=== PATIENT | female | born 1945 | race Caucasian/White ===

== ENCOUNTER 2019-02-17 14:04 | Inpatient (IN) | payer MEDICARE, BC ==
[~2019-02-17] VITALS: Ht 157.5 cm; Wt 71.3 kg
[~2019-02-17 14:04] MED LIST: ALEN10; ALEN70 PO; AMBIEN CR; ATEN25 PO; CALC1.25T PO; CALGLU500; CEFP500; CHOL10002 PO; ERGO400 PO; ERGO50000 PO; HYDACE5; HYDACE5 PO; HYDACE7.5; HYDCHL25 PO; HYDGUAL120 PO; HYDSUL200; HYDSUL200 PO; IBUP800 PO; LEFL20; LEFL20 PO; LEVFLO500 PO; MELO7.5; MULVIT; NITR100CA; NORT25 PO; NORT50; OSCAL; OXYACE7.5T PO; OXYC5; Percocet 5-3251 EACH PO; REMICADE; RITUXAN IV; Thera-M1 EACH PO; ZOLP10 PO; ZOLP12.5 PO; [UNRECOGNIZED DRUG - OTHER]
[2019-02-17 14:53] LABS: BASOPHILS ABSOLUTE AUTO 0.04 K/mm3 (0.00-0.23); BASOPHILS PERCENT AUTO 0 % (0-2); EOSINOPHILS ABSOLUTE AUTO 0.23 K/mm3 (0.00-0.68); EOSINOPHILS PERCENT AUTO 1 % (0-6); Hematocrit 46.1 % (33.0-51.0); IMMATURE GRAN ABSOLUTE AUTO 0.24 K/mm3 (0.00-0.10); IMMATURE GRAN PERCENT AUTO 1 % (0-1); LYMPHOCYTES PERCENT AUTO 13 % (21-46); MONOCYTES ABSOLUTE AUTO 0.81 K/mm3 (0.16-1.47); MONOCYTES PERCENT AUTO 4 % (4-13); Mean Corpuscular HGB 27.8 pg (26.0-34.0); Mean Corpuscular HGB Conc 30.4 g/dL (31.5-36.5); Mean Corpuscular Volume 92 fL (80-100); NEUTROPHILS ABSOLUTE AUTO 15.06 K/mm3 (1.96-9.15); NEUTROPHILS PERCENT AUTO 80 % (41-73); Platelet Count 664 K/mm3 (150-400); RDW Coefficient Variation 15.2 % (11.7-14.2); RDW Standard Deviation 50.7 fL (35.1-46.3); Red Blood Cell Count 5.03 M/mm3 (3.80-5.20); White Blood Cell Count 18.78 K/mm3 (4.00-11.30)
[2019-02-17 15:11] LABS: Albumin, Blood 3.3 g/dL (3.4-5.0); Albumin/Globulin Ratio 0.8 (0.8-1.8); Bilirubin, Total 0.4 mg/dL (0.1-1.0); Bun/Creatinine Ratio 15.7 (12.0-20.0); Calcium, Blood 9.4 mg/dL (8.5-10.1); Creatinine, Blood 1.15 mg/dL (0.40-1.00); Globulin, Blood 4.3 g/dL (2.2-4.0); Potassium, Blood 3.7 mmol/L (3.5-5.5); Total Protein, Blood 7.6 g/dL (6.4-8.2)
[2019-02-17] MEDS ORDERED: ATEN25 PO (16:06)
[2019-02-17] MEDS ORDERED: ZOLP12.5 PO (16:08)
[2019-02-17] MEDS ORDERED: Norco 5-325 Ta1 EACH PO (16:10)
[2019-02-17] MEDS ORDERED: ZOLP10 PO (16:27)
[2019-02-17] MEDS ORDERED: CELE200 PO (16:27)
[2019-02-17] MEDS ORDERED: Zanaflex4 MG PO (16:28)
[2019-02-17] MEDS ORDERED: PRAV20 PO (16:29)
[2019-02-17] MEDS ORDERED: CALCIUM 500 +1 EAC3 PO (16:31)
[2019-02-17 17:06] LABS: Magnesium, Blood 1.9 mg/dL (1.6-2.4); Troponin I <0.015 ng/mL (0.000-0.040)
[2019-02-18 03:03] LABS: Source, Urine Voided
[2019-02-18 03:05] LABS: Bilirubin, Urine Neg (Neg); Blood, Urine Neg (Neg); Glucose Qualitative, Urine Neg (Neg); Ketones, Urine Neg (Neg); Leukocyte Esterase, Urine 3+ (Neg); Nitrite, Urine Neg (Neg); Protein, Urine 1+ (Neg); Urobilinogen, Urine NORM (Normal); pH, Urine 6.5 (5.0-8.0)
[2019-02-18 03:15] LABS: Appearance, Urine Clear (Clear); Bacteria Few /hpf; Color, Urine Yellow (P-Yellow); Hyaline Casts TNTC /lpf (0-2); Red Blood Cells, Urine Not Seen /hpf (0-2); Squamous Epithelial Cells Few /hpf (Few)
--- NOTE | 2019-02-18 03:54 | NUR ---
SHIFT SUMMARY PT HAD MOSTLY UNEVENTFUL NIGHT. AWAKE THROUGH MUCH OF IT, HAVING DIFFICULTLY SLEEPING WITH IV AND TELE MONITOR AND IN HOSPITAL BED. PT DID HAVE HER BASELINE CHRONIC PAIN FROM HER RA. MOSTLY REPORTED IN HER SHOULDERS AND BUE'S. MEDICATED WITH BEDTIME DOSE OF XANAFLEX AND 1 TAB NORCO 3/325. NO ADDITIONAL PAIN REPORTED OUTSIDE OF HER BASELINE PAIN. PT DENIED ANY DIZZINESS OR LIGHT HEADEDNESS. AMBULATED WITH SBA TO RESTROOM. TELEMETRY ON AND READING SR W/ BBB IN THE 'S. ONE SET OF ORTHOSTATIC VITALS DONE WHEN PT FIRST ARRIVED TO ROOM. LYING DOWN 140/103, SITTING 130/102, AND STANDING 111/81. LACTIC ACID TRENDING DOWN BUT REMAINED > 2.0, DROPPING FROM 2.9 TO 2.3. NOTIFIED MESERET WHITEHEAD WHO ORDERED AN ADDITIONAL 1 L BOLUS AT 500 ML/HR AND TO RECHECK LACTIC ACID IN AM. URINE CULTURE COLLECTED AND SENT TO LAB. PT RESTING IN BED. WILL CONTINUE TO MONITOR.
[2019-02-18 04:49] LABS: BASOPHILS ABSOLUTE AUTO 0.05 K/mm3 (0.00-0.23); BASOPHILS PERCENT AUTO 0 % (0-2); EOSINOPHILS ABSOLUTE AUTO 0.39 K/mm3 (0.00-0.68); EOSINOPHILS PERCENT AUTO 3 % (0-6); Hematocrit 36.1 % (33.0-51.0); IMMATURE GRAN ABSOLUTE AUTO 0.11 K/mm3 (0.00-0.10); IMMATURE GRAN PERCENT AUTO 1 % (0-1); LYMPHOCYTES ABSOLUTE AUTO 1.63 K/mm3 (0.84-5.20); LYMPHOCYTES PERCENT AUTO 13 % (21-46); MONOCYTES ABSOLUTE AUTO 0.64 K/mm3 (0.16-1.47); MONOCYTES PERCENT AUTO 5 % (4-13); Mean Corpuscular HGB 27.8 pg (26.0-34.0); Mean Corpuscular HGB Conc 30.5 g/dL (31.5-36.5); Mean Corpuscular Volume 91 fL (80-100); Mean Platelet Volume 9.9 fL (9.1-12.4); NEUTROPHILS ABSOLUTE AUTO 9.96 K/mm3 (1.96-9.15); NEUTROPHILS PERCENT AUTO 78 % (41-73); Platelet Count 444 K/mm3 (150-400); RDW Coefficient Variation 15.4 % (11.7-14.2); RDW Standard Deviation 51.2 fL (35.1-46.3); Red Blood Cell Count 3.96 M/mm3 (3.80-5.20); White Blood Cell Count 12.78 K/mm3 (4.00-11.30)
[2019-02-18 05:35] LABS: Alanine Aminotransfer (ALT/SGP 23 U/L (12-78); Albumin, Blood 2.5 g/dL (3.4-5.0); Alk Phos 77 U/L (50-136); Anion Gap 9 mmol/L (6-16); Aspartate Aminotrans (AST/SGOT 12 U/L (12-37); Bilirubin, Total 0.3 mg/dL (0.1-1.0); Blood Urea Nitrogen 23 mg/dL (8-24); Bun/Creatinine Ratio 24.3 (12.0-20.0); CHOL/HDL RATIO 3.7; CO2, Blood 23 mmol/L (21-32); Chloride, Blood 111 mmol/L (98-108); Cholesterol 154 mg/dL (50-200); Creatinine, Blood 0.95 mg/dL (0.40-1.00); Glomerular Filtration Rate >60 (60-); Glucose, Blood 89 mg/dL (70-99); HDL Cholesterol 42 mg/dL (>39); LDL/HDL RATIO 1.7; Low Density Lipoprotein Chol 72 mg/dL (0-110); Potassium, Blood 3.9 mmol/L (3.5-5.5); Sodium, Blood 143 mmol/L (136-145); Triglycerides 201 mg/dL (30-160); Very Low Density Lipoprot Chol 40 mg/dL (6-32)
[2019-02-18 05:47] LABS: Percent Saturation 8.8 % (15.0-50.0)
[2019-02-18 05:55] LABS: Albumin/Globulin Ratio 0.7 (0.8-1.8); Globulin, Blood 3.4 g/dL (2.2-4.0); Total Protein, Blood 5.9 g/dL (6.4-8.2)
--- NOTE | 2019-02-18 13:32 | NUR ---
PT DISCHARGED VIA W/C POV WITH SPOUSE AND IN NO ACUTE DISTRESS; VERBALIZED UNDERSTANDING OF DISCHARGE INSTRUCTIONS AND IMPORTANCE OF FOLLOWING UP WITH PCP. IV DISCONTINUED INTACT; ALL BELONGINGS AND VALUABLES SENT WITH PATIENT AT TIME OF DISCHARGE.
--- NOTE | 2019-02-18 16:57 | NUR ---
RECEIVED A PHONE REPORT FROM THE LAB ABOUT GM POS COCCI IN CLUSTERS IN A BLOOD CULT SAMPLE FROM 1804 YESTERDAY. PATIENT HAS BEEN DISCHARGED EARLIER TODAY. I NOTIFIED OF POS BLD. CULT. SHE WILL F/U WITH TOMORROW'S REPORT.
== END 2019-02-18 13:37 | disposition home or self-care (01) | DRG 312 ==
LOC: ER 14:04 → MEDS 19:33 → ENPENDDIS 02-18 12:46 → MEDS 02-18 13:37
PROVIDERS: Emergency Medicine; Physician Assistant; ADMIT Internal Medicine
DX: R55 Syncope and collapse (principal); N17.9 Acute kidney failure, unspecified; I10 Essential (primary) hypertension; M06.9 Rheumatoid arthritis, unspecified; E78.5 Hyperlipidemia, unspecified; I95.1 Orthostatic hypotension; I65.23 Occlusion and stenosis of bilateral carotid arteries
CPT/HCPCS: 36415; 70450; 71046; 73630; 80053; 80061; 81001; 82533; 82607; 82728; 82746; 83540; 83550; 83605; 83735; 84443; 84484; 85025; 87040; 87086; 93005; 93010; 93306; 93880; 99285-25; A9270-GY; J7030

== ENCOUNTER 2019-11-18 06:44 | Emergency (ER) | payer MEDICARE, BC ==
[~2019-11-18] VITALS: Ht 157.5 cm; Wt 72.6 kg
[~2019-11-18 06:44] MED LIST changes: +CALCIUM 500 +1 EAC3 PO; +CELE200 PO; +Norco 5-325 Ta1 EACH PO; +PRAV20 PO; +Zanaflex4 MG PO
[2019-11-18 07:59] LABS: BASOPHILS ABSOLUTE AUTO 0.06 K/mm3 (0.00-0.23); BASOPHILS PERCENT AUTO 1 % (0-2); EOSINOPHILS ABSOLUTE AUTO 0.12 K/mm3 (0.00-0.68); EOSINOPHILS PERCENT AUTO 2 % (0-6); Hematocrit 44.5 % (33.0-51.0); Hemoglobin 13.7 g/dL (11.5-16.0); IMMATURE GRAN ABSOLUTE AUTO 0.01 K/mm3 (0.00-0.10); IMMATURE GRAN PERCENT AUTO 0 % (0-1); LYMPHOCYTES ABSOLUTE AUTO 1.41 K/mm3 (0.84-5.20); LYMPHOCYTES PERCENT AUTO 19 % (21-46); MONOCYTES ABSOLUTE AUTO 0.91 K/mm3 (0.16-1.47); MONOCYTES PERCENT AUTO 12 % (4-13); Mean Corpuscular HGB 27.6 pg (26.0-34.0); Mean Corpuscular HGB Conc 30.8 g/dL (31.5-36.5); Mean Corpuscular Volume 90 fL (80-100); NEUTROPHILS ABSOLUTE AUTO 4.87 K/mm3 (1.96-9.15); NEUTROPHILS PERCENT AUTO 66 % (41-73); Platelet Count 280 K/mm3 (150-400); RDW Coefficient Variation 14.5 % (11.7-14.2); RDW Standard Deviation 47.7 fL (35.1-46.3); Red Blood Cell Count 4.96 M/mm3 (3.80-5.20); White Blood Cell Count 7.38 K/mm3 (4.00-11.30)
[2019-11-18 08:15] LABS: Alanine Aminotransfer (ALT/SGP 73 U/L (12-78); Albumin, Blood 3.8 g/dL (3.4-5.0); Albumin/Globulin Ratio 1.1 (0.8-1.8); Alk Phos 128 U/L (50-136); Anion Gap 6 mmol/L (6-16); Aspartate Aminotrans (AST/SGOT 51 U/L (12-37); Bilirubin, Total 0.8 mg/dL (0.1-1.0); Blood Urea Nitrogen 11 mg/dL (8-24); Bun/Creatinine Ratio 19.1 (12.0-20.0); CO2, Blood 26 mmol/L (21-32); Chloride, Blood 113 mmol/L (98-108); Creatinine, Blood 0.58 mg/dL (0.40-1.00); Globulin, Blood 3.5 g/dL (2.2-4.0); Glomerular Filtration Rate >60 (60-); Glucose, Blood 95 mg/dL (70-99); Potassium, Blood 3.5 mmol/L (3.5-5.5); Sodium, Blood 145 mmol/L (136-145); Total Protein, Blood 7.3 g/dL (6.4-8.2); Troponin I 0.018 ng/mL (0.000-0.040)
[2019-11-18] MEDS ORDERED: AMLODIPINE BESYL5 MG PO (08:25)
[2019-11-18] MEDS ORDERED: NEURONTIN300 MG PO (08:26)
[2019-11-18] MEDS ORDERED: Cymbalta30 MG (08:26)
[2019-11-18] MEDS ORDERED: Lasix20 MG PO (09:54)
[2019-11-18] MEDS ORDERED: K-Dur10 MEQ PO (09:54)
== END 2019-11-18 10:20 | disposition home or self-care (01) ==
LOC: ER 06:44
PROVIDERS: Emergency Medicine
DX: J81.1 Chronic pulmonary edema (principal); R06.01 Orthopnea; Z88.2 Allergy status to sulfonamides; Z79.899 Other long term (current) drug therapy
CPT/HCPCS: 36415; 71046; 80053; 83880; 84484; 85025; 93005; 93010; 94640; 96374; 99284-25; J1940

== ENCOUNTER 2019-11-19 11:20 | Inpatient (IN) | payer MEDICARE, BC ==
[~2019-11-19] VITALS: Ht 160 cm; Wt 73.0 kg
[~2019-11-19 11:20] MED LIST changes: +AMLODIPINE BESYL5 MG PO; +Cymbalta30 MG; +K-Dur10 MEQ PO; +Lasix20 MG PO; +NEURONTIN300 MG PO
[2019-11-19 12:05] LABS: BASOPHILS ABSOLUTE AUTO 0.06 K/mm3 (0.00-0.23); BASOPHILS PERCENT AUTO 1 % (0-2); EOSINOPHILS ABSOLUTE AUTO 0.29 K/mm3 (0.00-0.68); EOSINOPHILS PERCENT AUTO 5 % (0-6); Hematocrit 45.8 % (33.0-51.0); Hemoglobin 14.1 g/dL (11.5-16.0); IMMATURE GRAN ABSOLUTE AUTO 0.01 K/mm3 (0.00-0.10); IMMATURE GRAN PERCENT AUTO 0 % (0-1); LYMPHOCYTES PERCENT AUTO 24 % (21-46); MONOCYTES ABSOLUTE AUTO 0.85 K/mm3 (0.16-1.47); MONOCYTES PERCENT AUTO 13 % (4-13); Mean Corpuscular HGB 27.9 pg (26.0-34.0); Mean Corpuscular HGB Conc 30.8 g/dL (31.5-36.5); Mean Corpuscular Volume 91 fL (80-100); Mean Platelet Volume 11.3 fL (9.1-12.4); NEUTROPHILS ABSOLUTE AUTO 3.66 K/mm3 (1.96-9.15); NEUTROPHILS PERCENT AUTO 58 % (41-73); Platelet Count 277 K/mm3 (150-400); RDW Coefficient Variation 14.5 % (11.7-14.2); RDW Standard Deviation 48.3 fL (35.1-46.3); Red Blood Cell Count 5.05 M/mm3 (3.80-5.20); White Blood Cell Count 6.37 K/mm3 (4.00-11.30)
[2019-11-19 12:13] LABS: Alanine Aminotransfer (ALT/SGP 71 U/L (12-78); Albumin, Blood 3.8 g/dL (3.4-5.0); Anion Gap 6 mmol/L (6-16); Aspartate Aminotrans (AST/SGOT 53 U/L (12-37); Blood Urea Nitrogen 15 mg/dL (8-24); Bun/Creatinine Ratio 20.6 (12.0-20.0); CO2, Blood 26 mmol/L (21-32); Calcium, Blood 9.4 mg/dL (8.5-10.1); Chloride, Blood 111 mmol/L (98-108); Creatinine, Blood 0.73 mg/dL (0.40-1.00); Glomerular Filtration Rate >60 (60-); Glucose, Blood 116 mg/dL (70-99); Sodium, Blood 143 mmol/L (136-145)
[2019-11-19 12:14] LABS: Albumin/Globulin Ratio 1.1 (0.8-1.8); Alk Phos 142 U/L (50-136); Bilirubin, Total 0.7 mg/dL (0.1-1.0); Globulin, Blood 3.5 g/dL (2.2-4.0); Total Protein, Blood 7.3 g/dL (6.4-8.2)
--- NOTE | 2019-11-19 18:42 | NUR ---
PT ARRIVED TO THE UNIT VIA WHEEL CHAIR. PT ORIENT. TO ROOM. AT BEDSIDE. IV FLUIDS RUNNING. PROVIDED A SNACK TO THE PT. CONNECTED TELE. NO FURTHER NEEDS AT THIS TIME.
--- NOTE | 2019-11-20 03:27 | NUR ---
CONTACTED HOSPITALIST: CONTACTED HOSPITALIST, DR. BACA AT 1801. PT REPORTS THAT SEVERAL OF HER ROUTINE MEDS THAT SHE STATES HELP HER SLEEP WERE MISSING FROM HS MEDS LISTED IN EMAR. RECEIVED MD APPROVAL TO ADD GABAPENTIN, NORTRYPTILLINE, AND PRAVASTATIN TO PT'S MAR DOCUMENTED IN MED REC.
[2019-11-20 04:47] LABS: BASOPHILS ABSOLUTE AUTO 0.05 K/mm3 (0.00-0.23); BASOPHILS PERCENT AUTO 1 % (0-2); EOSINOPHILS ABSOLUTE AUTO 0.33 K/mm3 (0.00-0.68); EOSINOPHILS PERCENT AUTO 5 % (0-6); Hematocrit 41.2 % (33.0-51.0); Hemoglobin 12.9 g/dL (11.5-16.0); IMMATURE GRAN ABSOLUTE AUTO 0.01 K/mm3 (0.00-0.10); IMMATURE GRAN PERCENT AUTO 0 % (0-1); LYMPHOCYTES PERCENT AUTO 24 % (21-46); MONOCYTES ABSOLUTE AUTO 0.92 K/mm3 (0.16-1.47); MONOCYTES PERCENT AUTO 15 % (4-13); Mean Corpuscular HGB 27.7 pg (26.0-34.0); Mean Corpuscular HGB Conc 31.3 g/dL (31.5-36.5); Mean Corpuscular Volume 89 fL (80-100); Mean Platelet Volume 11.7 fL (9.1-12.4); NEUTROPHILS ABSOLUTE AUTO 3.39 K/mm3 (1.96-9.15); NEUTROPHILS PERCENT AUTO 55 % (41-73); Platelet Count 243 K/mm3 (150-400); RDW Coefficient Variation 14.3 % (11.7-14.2); RDW Standard Deviation 46.2 fL (35.1-46.3); Red Blood Cell Count 4.65 M/mm3 (3.80-5.20)
[2019-11-20 05:07] LABS: Anion Gap 10 mmol/L (6-16); Blood Urea Nitrogen 18 mg/dL (8-24); Bun/Creatinine Ratio 27.3 (12.0-20.0); CO2, Blood 23 mmol/L (21-32); Calcium, Blood 8.7 mg/dL (8.5-10.1); Chloride, Blood 110 mmol/L (98-108); Creatinine, Blood 0.66 mg/dL (0.40-1.00); Glomerular Filtration Rate >60 (60-); Glucose, Blood 98 mg/dL (70-99); Potassium, Blood 3.4 mmol/L (3.5-5.5); Sodium, Blood 143 mmol/L (136-145)
--- NOTE | 2019-11-20 05:28 | NUR ---
SHIFT SUMMARY: A/OX4. COMMUNICATES NEEDS. PT HAD ROUGH NIGHT WITH TELE LEADS REPEATEDLY COMING OFF AND STAFF INTERUPTING SLEEP TO REPLACE THEM. DENIES SOB OR CHEST PAIN. SOME EXERTIONAL DYSPNEA NOTED WHEN PT T/F FROM BED TO BATHROOM AND BACK. NO COUGHING TONIGHT. MAINTAINING SATS WNL ON RA. TRACE EDEMA PRESENT IN BLE. BED LOW, CALL BUTTON IN REACH. WILL CONT TO MONITOR.
--- NOTE | 2019-11-20 17:49 | NUR ---
SHIFT SUMMARY- PT IS A/O, PLESANT AND COOPERATIVE. PT HAD CONSULTATION WITH IN HOME CAREGIVER. WILL GO TO BUSINESS INITIATIVES MANAGER TOMORROW. PT EATING AND DRINKING WELL. FAMILY AT BEDSIDE.
[2019-11-21 04:40] LABS: International Normalized Ratio 1.09; Prothrombin Time Results 11.6 Sec (9.7-11.5)
[2019-11-21 04:44] LABS: Anion Gap 7 mmol/L (6-16); Blood Urea Nitrogen 15 mg/dL (8-24); Bun/Creatinine Ratio 23.8 (12.0-20.0); CO2, Blood 25 mmol/L (21-32); Calcium, Blood 8.3 mg/dL (8.5-10.1); Chloride, Blood 111 mmol/L (98-108); Cholesterol 106 mg/dL (50-200); Creatinine, Blood 0.63 mg/dL (0.40-1.00); Glomerular Filtration Rate >60 (60-); Glucose, Blood 88 mg/dL (70-99); HDL Cholesterol 35 mg/dL (>39); LDL/HDL RATIO 1.4; Low Density Lipoprotein Chol 51 mg/dL (0-110); Potassium, Blood 3.5 mmol/L (3.5-5.5); Sodium, Blood 143 mmol/L (136-145); Triglycerides 102 mg/dL (30-160); Very Low Density Lipoprot Chol 20 mg/dL (6-32)
--- NOTE | 2019-11-21 04:57 | NUR ---
SHIFT SUMMARY PT HAD UNEVENTFUL NIGHT. DENIED ANY PAIN. DOES COMPLAIN OF SOME SOB BUT RESPIRATIONS ARE EVEN AND UNLABORED. REMAINED ON RA. PT HAS BEEN NPO SINCE MIDNIGHT FOR THORACENTESIS TODAY AND POSSIBLE ANGIO. VITAL SIGNS STABLE. NO ACUTE CHANGES THIS SHIFT.
[2019-11-21 10:05] LABS: Automated BF WBC Count 0.847 K/mm3 (0-999); Body Fluid WBC Count 847 /mm3 (0-999)
[2019-11-21 10:18] LABS: Protein, Body Fluid 2.3 g/dL
[2019-11-21 10:54] LABS: RBC Count, Body Fluid 826 /mm3 (0-0)
[2019-11-21 11:04] LABS: Appearance, Body Fluid Clear (Clear); Color, Body Fluid L Yellow (None-Yellow); Total Cell Count, Body Fluid 100
--- NOTE | 2019-11-21 11:10 | NUR ---
PERMISSION THE PATIENT GAVE THE STUDENT NURSE PERMISSION TO BE INVOLVED IN CARE DURING MORNING CLINICALS ON 11/21/19
--- NOTE | 2019-11-21 16:42 | NUR ---
REPORT CALLED TO TAMMY BRAY RN.
--- NOTE | 2019-11-21 17:49 | NUR ---
SUMMARY Assumed care of pt upon arrival to ICU 8 at 1705. Pt arrvied via bed accomanied by heart center staff. Right and left heart catheterization completed per report. Pt has left transradial artery site, covered with TR band. Pt has venous site to right groin dressed with pretty patch and tegaderm CHG. Color, sensation, pulses, capillary refill equal BUE and BLE. Pt alert & oriented x 4. SR per monitor with BBB. Denies chest pain or shortness of breath. Pt on room air. SpO2 88-90%. Denies chest pain. In room, eating dinner and visiting with family.
--- NOTE | 2019-11-21 19:15 | NUR ---
ASSUMED CARE AT 1915, PT ALERT, DINES PAIN OR SOB.
--- NOTE | 2019-11-21 23:45 | NUR ---
PT TRNASFERED TO PCU 7. PT ALERT DEINES PAIN OR SOB. ABLE TO TRANSFER TO WHEELCHAIR ON OWN. TR BAND STILL IN PLACE, SYRINGE GIVEN TO RECIEVING NURSE.
--- NOTE | 2019-11-21 23:50 | NUR ---
Pt transfer from ICU to PCU 7 at 2335. Pt transported via wheelechair with RN. Pt independantly walked to bathroom for voiding upon arrival. Steady gait. Lungs diminished, with fine crackles to bilat bases. Pt S/p angio with Rgroin venous access, site WNL; and R Radial access with TR band in place. 2CC taken from TR site and no bleed or hematoma. Pt on 3L NC for sats at 95%; baseline is RA. Call light in reach, pt alert and orietned, compliant with care and compliant with R wrist restriction. Will continue to monitor. NO acute concerns to note at this time
--- NOTE | 2019-11-22 02:45 | NUR ---
Pt fully recovered; TR site WNL, no bleed or hematoma present. Pt complains of tenderness on entire R forearm. No bruising noted. Will continue to monitor.
--- NOTE | 2019-11-22 05:27 | NUR ---
SHIFT SUMMARY No acute changes this shift. Pt remains alert and oriented, able to make needs known, no events on tele. Pt denies chest pain or pressure, denies SOB. Pt with TR site fully recovered, tegaderm in place. No hematoma or bleed present. Site is tender to pressure. Pt is compliant with R arm restriction and arm board is in place. Pt is independant in room, steady gait. No acute concerns to note from this shift. Will continue to monitor.
[2019-11-22 06:49] LABS: BASOPHILS ABSOLUTE AUTO 0.05 K/mm3 (0.00-0.23); BASOPHILS PERCENT AUTO 1 % (0-2); EOSINOPHILS ABSOLUTE AUTO 0.35 K/mm3 (0.00-0.68); EOSINOPHILS PERCENT AUTO 5 % (0-6); Hematocrit 46.4 % (33.0-51.0); Hemoglobin 14.5 g/dL (11.5-16.0); IMMATURE GRAN ABSOLUTE AUTO 0.01 K/mm3 (0.00-0.10); IMMATURE GRAN PERCENT AUTO 0 % (0-1); LYMPHOCYTES ABSOLUTE AUTO 1.69 K/mm3 (0.84-5.20); LYMPHOCYTES PERCENT AUTO 25 % (21-46); MONOCYTES ABSOLUTE AUTO 0.82 K/mm3 (0.16-1.47); MONOCYTES PERCENT AUTO 12 % (4-13); Mean Corpuscular HGB 27.8 pg (26.0-34.0); Mean Corpuscular HGB Conc 31.3 g/dL (31.5-36.5); Mean Corpuscular Volume 89 fL (80-100); Mean Platelet Volume 10.9 fL (9.1-12.4); NEUTROPHILS ABSOLUTE AUTO 3.91 K/mm3 (1.96-9.15); NEUTROPHILS PERCENT AUTO 57 % (41-73); Platelet Count 275 K/mm3 (150-400); RDW Coefficient Variation 14.3 % (11.7-14.2); RDW Standard Deviation 46.1 fL (35.1-46.3); Red Blood Cell Count 5.22 M/mm3 (3.80-5.20); White Blood Cell Count 6.83 K/mm3 (4.00-11.30)
[2019-11-22 07:08] LABS: Anion Gap 5 mmol/L (6-16); Blood Urea Nitrogen 13 mg/dL (8-24); Bun/Creatinine Ratio 19.8 (12.0-20.0); CO2, Blood 28 mmol/L (21-32); Calcium, Blood 8.5 mg/dL (8.5-10.1); Chloride, Blood 111 mmol/L (98-108); Creatinine, Blood 0.66 mg/dL (0.40-1.00); Glomerular Filtration Rate >60 (60-); Glucose, Blood 98 mg/dL (70-99); Potassium, Blood 3.7 mmol/L (3.5-5.5); Sodium, Blood 144 mmol/L (136-145)
[2019-11-22 08:01] LABS: Alanine Aminotransfer (ALT/SGP 34 U/L (12-78); Aspartate Aminotrans (AST/SGOT 30 U/L (12-37)
--- NOTE | 2019-11-22 08:05 | NUR ---
AM NOTE... ASSUMED CARE OF PT APROX 0700. PT IS A&Ox4 AND IND IN THE ROOM. PT HAS NEW ONSET CHF, CURRENTLY PT IS NSR IN THE 80'S PER DOOR WORKER, PT DENIES CHEST PAIN/PRESSURE OR SOB AT THIS TIME. PT IS ON 2L NC WITH O2 STATS >92% WILL TITRATE PT TOLERATES TO RA. PT'S L/S CLEAR IN THE UPPER LOBES DIM IN THE LOWER. ABD IS SOFT AND NONTENDER TO PALP. PT'S ANGIO GRAM SITES ARE C/D/I WITH NO BLEEDING SWELLING OR HEMATOMA NOTED. CALL LIGHT IN REACH WILL CONTINUE TO MONITOR.
--- NOTE | 2019-11-22 18:10 | NUR ---
SHIFT SUMMARY... PT HAS BEEN TITRATED FROM 2L NC TO RA WITH O2 SATS >90%. PT HAS BEEN IND IN THE ROOM UP TO THE BATHROOM. PT DENIES SOB. PT DENIES CHEST PAIN/PRESSURE. PT'S VS HAVE BEEN STABLE EXCEPT TEMP, PT'S TMAX THIS SHIFT WAS 101.5, PT WAS MEDICATED WITH TYLENOL AND TEMP CAME DOWN TO 100.1. PT'S WAS AT THE BEDSIDE MOST OF THE SHIFT. PT TOLD THIS RN THAT SHE WANTED TO CHANGE HER CODE STATUS FROM DNR TO FULL CODE. CALL LIGHT IN REACH WILL CONTINUE TO MONITOR UNTIL REPORT IS GIVEN TO ONCOMING RN.
--- NOTE | 2019-11-22 19:48 | NUR ---
assumed care Pt presents lying in bed, VSS - temp 99.9. Alert and oriented. RR access site WNL, nontender. Pt is independant in room, able to make needs known. See shift assessment for detailed systems assessment.
[2019-11-23 04:08] LABS: BASOPHILS ABSOLUTE AUTO 0.05 K/mm3 (0.00-0.23); BASOPHILS PERCENT AUTO 1 % (0-2); EOSINOPHILS ABSOLUTE AUTO 0.31 K/mm3 (0.00-0.68); EOSINOPHILS PERCENT AUTO 5 % (0-6); Hematocrit 44.5 % (33.0-51.0); Hemoglobin 14.4 g/dL (11.5-16.0); IMMATURE GRAN ABSOLUTE AUTO 0.04 K/mm3 (0.00-0.10); IMMATURE GRAN PERCENT AUTO 1 % (0-1); LYMPHOCYTES PERCENT AUTO 32 % (21-46); MONOCYTES ABSOLUTE AUTO 0.85 K/mm3 (0.16-1.47); MONOCYTES PERCENT AUTO 13 % (4-13); Mean Corpuscular HGB Conc 32.4 g/dL (31.5-36.5); Mean Platelet Volume 11.3 fL (9.1-12.4); NEUTROPHILS ABSOLUTE AUTO 3.07 K/mm3 (1.96-9.15); NEUTROPHILS PERCENT AUTO 49 % (41-73); Platelet Count 232 K/mm3 (150-400); RDW Coefficient Variation 14.1 % (11.7-14.2); Red Blood Cell Count 5.15 M/mm3 (3.80-5.20); White Blood Cell Count 6.32 K/mm3 (4.00-11.30)
[2019-11-23 04:10] LABS: Mean Corpuscular Volume 86 fL (80-100)
[2019-11-23 04:24] LABS: Anion Gap 9 mmol/L (6-16); Blood Urea Nitrogen 17 mg/dL (8-24); Bun/Creatinine Ratio 25.7 (12.0-20.0); CO2, Blood 22 mmol/L (21-32); Calcium, Blood 8.8 mg/dL (8.5-10.1); Chloride, Blood 111 mmol/L (98-108); Creatinine, Blood 0.66 mg/dL (0.40-1.00); Glomerular Filtration Rate >60 (60-); Glucose, Blood 102 mg/dL (70-99); Potassium, Blood 4.1 mmol/L (3.5-5.5); Sodium, Blood 142 mmol/L (136-145)
--- NOTE | 2019-11-23 06:10 | NUR ---
Shift Summary Pt with no acute events overnight, tmax 99.9 degrees at start of shift. Pt with no complaints of shortness of breath, required no NC overnight. Alert and oriented. able to make needs known, up to bathroom independantly. Pt with no events on tele. Denies chest pain or pressure. R Radial access site WNL; arm board in place, pt compliant with R arm restrictions. No acute declines from initial shift assessment. Will continue to monitor.
--- NOTE | 2019-11-23 08:48 | NUR ---
AM NOTE... ASSUMED CARE OF PT APROX 0700. PT IS A&Ox4 AND IND IN THE ROOM. PT'S VS STABLE PT DENIES CHEST PAIN/PRESSURE N/V OR SOB AT THIS TIME. PT IS ON RA WITH O2 SATS >90%. PT IS ANXIOUS TO D/C HOME. PT IS TO FOLLOW UP WITH CARDIOLOGY. EXTENSIVE EDUCATION PROVIDED TO PT ABOUT CHF, FLUID RESTRICTION AND DECREASED SODIUM INTAKE. CALL LIGHT IN REACH WILL CONTINUE TO MONITOR.
[2019-11-23] MEDS ORDERED: FURO40 PO (11:13)
[2019-11-23] MEDS ORDERED: POTCHL20ER PO (11:14)
[2019-11-23] MEDS ORDERED: CARV6.25 PO (11:15)
[2019-11-23] MEDS ORDERED: SENNA PLUS 8.61 EACH PO (11:16)
[2019-11-23] MEDS ORDERED: ENTRESTO 24 MG1 EACH PO (11:18)
--- NOTE | 2019-11-23 13:05 | NUR ---
PT D/C HOME... PT D/C HOME WITH AND IS TO FOLLOW UP WITH CARDIOLOGY IN 4 DAYS. EXTENSIVE EDUCATION PROVIDED TO THE PT AND ABOUT NEW MEDICATIONS, SIDE EFECCTS, AND CHF. MEDICATIONS CALLED INTO PHARMACY OF PT'S CHOICE. ALL OF PT BELONGINS PACKED AND SENT WITH WITH THE PT. IV WAS REMOVED WNL. PT WAS TAKEN TO CAR VIA W/C.
== END 2019-11-23 12:57 | disposition home or self-care (01) | DRG 286 ==
LOC: ER 11:20 → MEDS 15:40 → ICUE 15:40 → MEDS 16:33 → ICUE 11-21 15:23 → PCU 11-22 00:33
PROVIDERS: Emergency Medicine; Internal Medicine; Internal Medicine Cardiovascular Disease; ADMIT Internal Medicine
PROC: 0W993ZZ Drainage of Right Pleural Cavity, Percutaneous Approach (ICD-10-PCS; principal; 2019-11-21)
PROC: 4A023N8 Measurement of Cardiac Sampling and Pressure, Bilateral, Percutaneous Approach (ICD-10-PCS; 2019-11-21)
PROC: B2111ZZ Fluoroscopy of Multiple Coronary Arteries using Low Osmolar Contrast (ICD-10-PCS; 2019-11-21)
PROC: B2151ZZ Fluoroscopy of Left Heart using Low Osmolar Contrast (ICD-10-PCS; 2019-11-21)
DX: I11.0 Hypertensive heart disease with heart failure (principal); I50.21 Acute systolic (congestive) heart failure; J90 Pleural effusion, not elsewhere classified; I35.0 Nonrheumatic aortic (valve) stenosis; E66.3 Overweight; Z96.653 Presence of artificial knee joint, bilateral; E78.5 Hyperlipidemia, unspecified; Z68.28 Body mass index [BMI] 28.0-28.9, adult; E87.6 Hypokalemia; G89.29 Other chronic pain; Z66 Do not resuscitate; M05.10 Rheumatoid lung disease with rheumatoid arthritis of unspecified site
CPT/HCPCS: 32555; 36415; 71045; 71046; 80048; 80053; 80061; 83735; 83880; 84145; 84157; 84443; 84450; 84460; 84484; 85025; 85347; 85610; 85730; 89051; 93005; 93010; 93306; 93460; 93571; 94640; 96365; 96374; 99152; 99153; 99284-25; 99285-25; A9270; C1769; C1887; C1894; J0696; J1250; J1644; J1650; J1940; J2250; J3010; J7030; Q9967

== ENCOUNTER → 2020-09-19 | Outpatient (CLI) | payer MEDICARE, BC ==
[~2020-09-19] MED LIST changes: +Aspir 8181 MG PO; +CARV6.25 PO; +DEXA2 PO; +ENTRESTO 24 MG1 EACH PO; +FURO40 PO; +MULVITA PO; +POTCHL20ER PO; -PRAV20 PO; +Pravachol40 MG PO; +SENNA PLUS 8.61 EACH PO; +SPIRONOLACTONE25 MG PO; +TEMAZEPAM15 M1 PO; -Thera-M1 EACH PO; +Vitamin D2000 UNIT PO
== END | disposition home or self-care (01) ==
LOC: LAB 11:33 → LAB SHORT 11:33
DX: U07.1 COVID-19 (principal)
CPT/HCPCS: U0003

== ENCOUNTER 2020-10-07 14:01 | Inpatient (IN) | payer MEDICARE, BC ==
[~2020-10-07] VITALS: Ht 160 cm; Wt 66.0 kg
[~2020-10-07 14:01] MED LIST changes: -Aspir 8181 MG PO; -CARV6.25 PO; -DEXA2 PO; -ENTRESTO 24 MG1 EACH PO; -FURO40 PO; -MULVITA PO; -NEURONTIN300 MG PO; -NORT25 PO; -POTCHL20ER PO; -Pravachol40 MG PO; -SPIRONOLACTONE25 MG PO; -TEMAZEPAM15 M1 PO; -Vitamin D2000 UNIT PO
[2020-10-07 14:45] LABS: BASOPHILS ABSOLUTE AUTO 0.02 K/mm3 (0.00-0.23); BASOPHILS PERCENT AUTO 0 % (0-2); EOSINOPHILS ABSOLUTE AUTO 0.01 K/mm3 (0.00-0.68); EOSINOPHILS PERCENT AUTO 0 % (0-6); Hematocrit 38.8 % (33.0-51.0); Hemoglobin 12.6 g/dL (11.5-16.0); IMMATURE GRAN ABSOLUTE AUTO 0.04 K/mm3 (0.00-0.10); IMMATURE GRAN PERCENT AUTO 1 % (0-1); LYMPHOCYTES ABSOLUTE AUTO 0.83 K/mm3 (0.84-5.20); LYMPHOCYTES PERCENT AUTO 14 % (21-46); MONOCYTES ABSOLUTE AUTO 0.34 K/mm3 (0.16-1.47); MONOCYTES PERCENT AUTO 6 % (4-13); Mean Corpuscular HGB 28.5 pg (26.0-34.0); Mean Corpuscular HGB Conc 32.5 g/dL (31.5-36.5); Mean Corpuscular Volume 88 fL (80-100); Mean Platelet Volume 11.8 fL (9.1-12.4); NEUTROPHILS ABSOLUTE AUTO 4.58 K/mm3 (1.96-9.15); NEUTROPHILS PERCENT AUTO 79 % (41-73); Platelet Count 177 K/mm3 (150-400); RDW Coefficient Variation 13.3 % (11.7-14.2); RDW Standard Deviation 42.9 fL (35.1-46.3); Red Blood Cell Count 4.42 M/mm3 (3.80-5.20); White Blood Cell Count 5.82 K/mm3 (4.00-11.30)
[2020-10-07 15:14] LABS: Albumin, Blood 2.3 g/dL (3.4-5.0); Albumin/Globulin Ratio 0.5 (0.8-1.8); Bilirubin, Total 0.6 mg/dL (0.1-1.0); Bun/Creatinine Ratio 20.2 (12.0-20.0); Calcium, Blood 8.8 mg/dL (8.5-10.1); Creatinine, Blood 1.09 mg/dL (0.40-1.00); Globulin, Blood 4.2 g/dL (2.2-4.0); Potassium, Blood 3.3 mmol/L (3.5-5.5); Total Protein, Blood 6.5 g/dL (6.4-8.2)
[2020-10-07 15:46] LABS: Creatine Kinase MB 2.6 ng/mL (0.0-3.6); Creatine Kinase MB Index 0.4 (0.0-4.0)
[2020-10-07] MEDS ORDERED: Pravachol40 MG PO (16:29)
[2020-10-07] MEDS ORDERED: NEURONTIN300 MG PO (16:30)
[2020-10-07] MEDS ORDERED: TEMAZEPAM15 M1 PO (16:32)
[2020-10-07] MEDS ORDERED: SPIRONOLACTONE25 MG PO (16:32)
[2020-10-07] MEDS ORDERED: CARV6.25 PO (16:33)
[2020-10-07] MEDS ORDERED: FURO40 PO (16:34)
[2020-10-07] MEDS ORDERED: POTCHL20ER PO (16:35)
[2020-10-07] MEDS ORDERED: NORT25 PO (17:27)
[2020-10-07] MEDS ORDERED: ENTRESTO 24 MG1 EACH PO (17:28)
[2020-10-07] MEDS ORDERED: MULVITA PO (17:29)
[2020-10-07] MEDS ORDERED: Aspir 8181 MG PO (17:30)
--- NOTE | 2020-10-07 19:09 | NUR ---
PT ARRIVED FROM THE ER, SLID FROM THE GURNEY TO THE BED, LATER ABLE TO STAND PIVOT TO THE COMMODE WITH ASSIST, PT SLOW TO ANSWER QUESTIONS, NO SKIN BREAKDOWN, WILL REPORT OFF TO NOC SHIFT
--- NOTE | 2020-10-08 02:35 | NUR ---
PHYSICIAN CONTACT PT HYPOTENSIVE, WEAK, AND DIAPHORETIC. PAINT PROCESS ENGINEER PROVIDER NOTIFIED, WILL INPUT ORDERS FOR NS 500 BOLUS AND REASSESS.
--- NOTE | 2020-10-08 03:50 | NUR ---
INTELLIGENT SYSTEMS ENGINEER SUMMARY PT LETHARGIC AND WEAK T/O SHIFT. 2 ASSIST TO BSC. DENIES PAIN OR SOB. CURRENTLY ON 2L VIA NC WITH SATS GREATER THAN 92. PT HYPOTENSIVE THIS AM, PLEASE SEE PREVIOUS NOTE. 500CC BOLUS CURRENTLY INFUSING. WILL CONTINUE TO MONITOR AND REPORT TO ONCOMING RN.
[2020-10-08 05:44] LABS: Anion Gap 8 mmol/L (6-16); Blood Urea Nitrogen 22 mg/dL (8-24); Bun/Creatinine Ratio 29.2 (12.0-20.0); CO2, Blood 20 mmol/L (21-32); Chloride, Blood 108 mmol/L (98-108); Creatinine, Blood 0.75 mg/dL (0.40-1.00); Glomerular Filtration Rate >60 (60-); Glucose, Blood 128 mg/dL (70-99); Potassium, Blood 4.1 mmol/L (3.5-5.5); Sodium, Blood 136 mmol/L (136-145)
--- NOTE | 2020-10-08 17:06 | NUR ---
SUMMARY PT SITTING UP IN BED WATCHING TV, PT HAS BEEN PLEASANT AND COOPERATIVE WITH CARE, UP WITH 2P ASSIST TO USE THE COMMODE SEVERAL TIMES TODAY, FAMILY HAS CALLED TO CHECK IN ON THE PT SEVERAL TIMES TODAY, PT WORKED WITH THERAPY AND WAS ABLE TO SIT UP IN THE CHAIR TODAY, PT REMAINS ON 2L NC AND DOES GET DYSPNEIC WITH ACTIVITY, VSS, WILL CONT TO MONITOR
--- NOTE | 2020-10-09 03:15 | NUR ---
SHIFT SUMMARY PATIENT HAD NO ACUTE CHANGES OBSERVED. AXO 3 AND TWO ASSIST TO BSC. TAKES MEDICATION X ONE EACH WITH WATER. ON 2L O2 NC. VSS/AFEBRILE. DENIES PAIN, SOB, AND N/V. PIV REMAINS INTACT. COOPERATIVE WITH CARE. CALL LIGHT IN REACH. BED IN LOWEST POSITION. WILL CONTINUE TO MONITOR UNTIL DAY SHIFT NURSE ASSUMES CARE.
--- NOTE | 2020-10-09 17:31 | NUR ---
held bp medication due to low bp, will continue to monitor and treat
--- NOTE | 2020-10-09 19:06 | NUR ---
a+o,but sleepy, bp low so medication held, was able to get a bp of 106/78 hr 66 by sitting her up and getting her awake and talking, used bsc, call light replaced with pressure pad, saline locked, 2L via nc, bsr shared with pt and noc nurse
--- NOTE | 2020-10-10 03:36 | NUR ---
SHIFT SUMMARY PATIENT HAD NO ACUTE CHANGES OBSERVED. AXOX 3 AND TWO ASSIST TO BSC. ON 2L O2 NC. PIV REMAINS INTACT. VSS/AFEBRILE. DENIES PAIN, SOB, AND N/V.TAKES MEDICATION X ONE EACH WITH WATER. PATIENT ABLE TO SLEEP MOST OF THE SHIFT. CALL LIGHT IN REACH. BED IN LOWEST POSITION. WILL CONTINUE TO MONITOR UNTIL DAY SHIFT NURSE ASSUMES CARE.
[2020-10-10 05:59] LABS: Anion Gap 8 mmol/L (6-16); Blood Urea Nitrogen 51 mg/dL (8-24); Bun/Creatinine Ratio 59.9 (12.0-20.0); CO2, Blood 26 mmol/L (21-32); Calcium, Blood 9.6 mg/dL (8.5-10.1); Chloride, Blood 106 mmol/L (98-108); Creatinine, Blood 0.85 mg/dL (0.40-1.00); Glomerular Filtration Rate >60 (60-); Glucose, Blood 123 mg/dL (70-99); Potassium, Blood 4.2 mmol/L (3.5-5.5); Sodium, Blood 140 mmol/L (136-145)
--- NOTE | 2020-10-10 18:37 | NUR ---
family called, spent most of the day in chairs, staff aquired recliner which she prefered, using pressure for call light, rm air, saline locked, sitting in bed watching tv, slow to respond, will provide bsr to noc nurse and pt
--- NOTE | 2020-10-10 18:53 | NUR ---
suggested that pt be fed rather then require her to try to eat with her hands so contracted, pt states she eats that way at home but she was not eating very much when left alone
--- NOTE | 2020-10-10 21:28 | NUR ---
RESTING QUIETLY. AWAKENED FOR HS MEDS, BP LOW, AM NURSE VOICED PT SLEEPING MOST OF SHIFT WITH LOW BP. WILL HOLD SLEEP MED AND MONITOR, IF RESTLESS AND BP ELEVATES WILL GIVE SLEEP MED AT THAT TIME. CALL LIGHT IN REACH. DROPLET PRECAUTIONS MAINTAINED. FEET ELEVATED FOR BP. HOB AT 30-45 DEGREES FOR RESP COMFORT
--- NOTE | 2020-10-11 03:49 | NUR ---
SHIFT SUMMARY HAS BEEN RESTING QUIETLY WITH FEW INTERRUPTIONS. ASSISTED WITH TAKING MEDS AND DRINKING WATER SHE SEEMED UNABLE TO HOLD CUP OR PILLS. CALL LIGHT IN REACH. DROPLET PRECAUTIONS MAINTAINED.
--- NOTE | 2020-10-11 16:50 | NUR ---
Shift Summary A/Ox3, pleasant and cooperative with care. Flat affect, declining to speak with daughter Renetta d/t being tired. Repositioned q2h and as needed for comfort. Incontinent. Denies pain this shift, saturating at 92% on RA. No shortness of breath with brief changes, able to follow commands and assist with turn/reposition. Worked with physical therapy today. Appetite is moderately well, requires feeding assist. Trinity and Renetta (daughters) have been updated on patient status. No acute concerns.
--- NOTE | 2020-10-11 19:14 | NUR ---
AWAKE. DENIES PAIN. VERBAL RESPONSE APPROPRIATE TO QUESTIONS ASKED. CALL LIGHT IN REACH.
--- NOTE | 2020-10-12 04:43 | NUR ---
SHIFT SUMMARY HAS BEEN RESTING QUIETLY UNTIL ABOUT AN HOUR AGO, AWAKE AT THIS TIME. NOTED PT ADJUSTING TV. VS TAKEN AND PT ALTHOUGH STOIC AFFECT, SLOWLY RESPONDED TO QUESTIONS ASKED. CALL LIGHT IN REACH
[2020-10-12 05:00] LABS: BASOPHILS PERCENT AUTO 0 % (0-2); EOSINOPHILS ABSOLUTE AUTO 0.01 K/mm3 (0.00-0.68); EOSINOPHILS PERCENT AUTO 0 % (0-6); Hematocrit 34.7 % (33.0-51.0); Hemoglobin 11.1 g/dL (11.5-16.0); IMMATURE GRAN ABSOLUTE AUTO 0.05 K/mm3 (0.00-0.10); IMMATURE GRAN PERCENT AUTO 1 % (0-1); LYMPHOCYTES ABSOLUTE AUTO 0.75 K/mm3 (0.84-5.20); LYMPHOCYTES PERCENT AUTO 10 % (21-46); MONOCYTES ABSOLUTE AUTO 0.86 K/mm3 (0.16-1.47); MONOCYTES PERCENT AUTO 12 % (4-13); Mean Corpuscular HGB 27.4 pg (26.0-34.0); Mean Corpuscular Volume 86 fL (80-100); Mean Platelet Volume 12.3 fL (9.1-12.4); NEUTROPHILS ABSOLUTE AUTO 5.76 K/mm3 (1.96-9.15); NEUTROPHILS PERCENT AUTO 78 % (41-73); Platelet Count 214 K/mm3 (150-400); RDW Coefficient Variation 13.6 % (11.7-14.2); RDW Standard Deviation 43.3 fL (35.1-46.3); Red Blood Cell Count 4.05 M/mm3 (3.80-5.20); White Blood Cell Count 7.43 K/mm3 (4.00-11.30)
[2020-10-12 05:17] LABS: Albumin, Blood 2.2 g/dL (3.4-5.0); Anion Gap 7 mmol/L (6-16); Blood Urea Nitrogen 57 mg/dL (8-24); Bun/Creatinine Ratio 63.3 (12.0-20.0); CO2, Blood 30 mmol/L (21-32); Chloride, Blood 105 mmol/L (98-108); Glomerular Filtration Rate >60 (60-); Glucose, Blood 107 mg/dL (70-99); Phosphorus, Blood 4.1 mg/dL (2.5-4.9); Potassium, Blood 4.4 mmol/L (3.5-5.5); Sodium, Blood 142 mmol/L (136-145)
--- NOTE | 2020-10-12 17:39 | NUR ---
Shift Summary Currently on 2L O2. Attempted to titrate down, but patient has shallow breaths and desats below 90% even with 1L. Follows directions well and answers questions appropriately. Patient is beginning to feed self with finger foods fairly well and tolerates meals only requiring meal set up. Blood pressure has been running on the lower end, Dr. Andrews is aware. Informed Dr. Andrews that Coreg has been held d/t low bp. Requested parameters for Coreg administration, Dr. Andrews will put in orders to reduce dose and include parameters. Plan is d/c to SNF, possibly with low dose anticoagulants. Will report to oncoming RN.
--- NOTE | 2020-10-12 19:56 | NUR ---
AWAKE AT SHIFT COMMENCE. AFECT STOIC. VERBAL RESPONSE APPROPRIATE TO QUESTIONS ASKED. VSS. CALL LIGHT IN REACH. INSTRUCTED NOT TO ATTEMPT TO CLIMB OUT OF BED. VOICED AGREEMENT. BED ALARM ON. DROPLET PRECAUTIONS MAINTAINED
--- NOTE | 2020-10-13 03:54 | NUR ---
SHIFT SUMMARY HAS BEEN RESTING QUIETLY WITH FEW INTERRUPTIONS THIS SHIFT. VSS. NO NOTED ACUTE DISTRESS. HAS BEEN ANSWERING QUESTIONS APPROPRIATELY AND EVEN SHOWING ABILITY TO ASSIST IN SELF EATING/DRINKING WITH STRAW. CALL LIGHT IN REACH. DROPLET PRECAUTIONS MAINTAINED
--- NOTE | 2020-10-13 15:00 | NUR ---
Lasix d/c Received verbal order to d/c shereenix from Dr. Cortez. Order updated.
--- NOTE | 2020-10-13 16:49 | NUR ---
Shift Summary A/Ox3, worked with OT but refused PT. Up to chair and bedside commode and is using call light appropriately. No pain issues. Remains on 2L NC with sats > 90%. Notified Dr. Cortez of holding Aldactone this AM d/t 102/67 blood pressure and patient already taking Coreg and Lasix. No other concerns. Called and updated daughter Trinity with patient's discharge plan and status.
--- NOTE | 2020-10-14 04:45 | NUR ---
75 year old Female covid 19 positive continues in droplet contact isolation. She is on oxygen 1 l at rest with sats greater than 92%. PT has severe RA with hx of bilat hip knee & shoulder replacements. She has urinary incontinence this shift. Minimal oral intake this shift drank some water 1 glass. PT will need prison placement, DC planning involved. Working with therapy.
[2020-10-14] MEDS ORDERED: DEXA2 PO (12:55)
[2020-10-14] MEDS ORDERED: Vitamin D2000 UNIT PO (12:56)
--- NOTE | 2020-10-14 14:02 | NUR ---
Discharge Summary A/Ox3, discharge to [facility]. Trinity informed of patient's discharge and she met patient outside of the COVID unit and escorted patient down with regional dedicated truck driver/transporter. IV removed, WNL. Personal belongings sent with patient. Packet and hard script also sent with patient. Report called to [facility] and given to Tsering @ 1298. Temperature checked prior to discharge (see VS).
== END 2020-10-14 13:55 | DRG 177 ==
LOC: ER 14:01 → MEDS 14:02
PROVIDERS: Emergency Medicine; Internal Medicine; ADMIT Internal Medicine
PROC: 8E0ZXY6 Isolation (ICD-10-PCS; principal; 2020-10-07)
PROC: XW033E5 Introduction of Remdesivir Anti-infective into Peripheral Vein, Percutaneous Approach, New Technology Group 5 (ICD-10-PCS; 2020-10-07)
DX: U07.1 COVID-19 (principal); J96.01 Acute respiratory failure with hypoxia; I50.23 Acute on chronic systolic (congestive) heart failure; I13.0 Hypertensive heart and chronic kidney disease with heart failure and stage 1 through stage 4 chronic kidney disease, or unspecified chronic kidney disease; N18.30 Chronic kidney disease, stage 3 unspecified; E87.6 Hypokalemia; M06.9 Rheumatoid arthritis, unspecified; I35.0 Nonrheumatic aortic (valve) stenosis; R62.7 Adult failure to thrive; Z66 Do not resuscitate; E78.5 Hyperlipidemia, unspecified
CPT/HCPCS: 36415; 70450; 71045; 72125; 80048; 80053; 80069; 82550; 82553; 83735; 83880; 84484; 85025; 85379; 93005; 93010; 96365; 96366; 96372; 97110; 97116; 97161; 97166; 97530; 97535; 99285-25; A9270; G0378; J1650; J7040; J7120

== ENCOUNTER 2021-08-20 13:47 | Emergency (ER) | payer MEDICARE, BC ==
[~2021-08-20] VITALS: Ht 160 cm; Wt 68.0 kg
[~2021-08-20 13:47] MED LIST changes: +Aspir 8181 MG PO; +CARV6.25 PO; +DEXA2 PO; +ENTRESTO 24 MG1 EACH PO; +FURO40 PO; +MULVITA PO; +NEURONTIN300 MG PO; +NORT25 PO; +POTCHL20ER PO; +Pravachol40 MG PO; +SPIRONOLACTONE25 MG PO; +TEMAZEPAM15 M1 PO; +Vitamin D2000 UNIT PO
[2021-08-20 14:19] LABS: BASOPHILS ABSOLUTE AUTO 0.04 K/mm3 (0.00-0.23); BASOPHILS PERCENT AUTO 1 % (0-2); EOSINOPHILS PERCENT AUTO 6 % (0-6); Hematocrit 40.7 % (33.0-51.0); IMMATURE GRAN ABSOLUTE AUTO 0.01 K/mm3 (0.00-0.10); IMMATURE GRAN PERCENT AUTO 0 % (0-1); LYMPHOCYTES ABSOLUTE AUTO 1.89 K/mm3 (0.84-5.20); LYMPHOCYTES PERCENT AUTO 35 % (21-46); MONOCYTES ABSOLUTE AUTO 0.76 K/mm3 (0.16-1.47); MONOCYTES PERCENT AUTO 14 % (4-13); Mean Corpuscular HGB 29.1 pg (26.0-34.0); Mean Corpuscular HGB Conc 31.9 g/dL (31.5-36.5); Mean Corpuscular Volume 91 fL (80-100); Mean Platelet Volume 11.8 fL (9.1-12.4); NEUTROPHILS ABSOLUTE AUTO 2.44 K/mm3 (1.96-9.15); NEUTROPHILS PERCENT AUTO 45 % (41-73); Platelet Count 249 K/mm3 (150-400); RDW Coefficient Variation 13.4 % (11.7-14.2); Red Blood Cell Count 4.46 M/mm3 (3.80-5.20); White Blood Cell Count 5.44 K/mm3 (4.00-11.30)
[2021-08-20 14:39] LABS: Alanine Aminotransfer (ALT/SGP 23 U/L (12-78); Albumin, Blood 3.5 g/dL (3.4-5.0); Alk Phos 103 U/L (50-136); Anion Gap 6 mmol/L (6-16); Aspartate Aminotrans (AST/SGOT 20 U/L (12-37); Bilirubin, Total 0.4 mg/dL (0.1-1.0); Blood Urea Nitrogen 19 mg/dL (8-24); Bun/Creatinine Ratio 18.1 (12.0-20.0); CO2, Blood 28 mmol/L (21-32); Calcium, Blood 9.5 mg/dL (8.5-10.1); Chloride, Blood 109 mmol/L (98-108); Creatinine, Blood 1.05 mg/dL (0.40-1.00); Globulin, Blood 3.6 g/dL (2.2-4.0); Glomerular Filtration Rate 51 (60-); Glucose, Blood 114 mg/dL (70-99); Potassium, Blood 3.8 mmol/L (3.5-5.5); Sodium, Blood 143 mmol/L (136-145); Total Protein, Blood 7.1 g/dL (6.4-8.2); Troponin I <0.015 ng/mL (0.000-0.040)
[2021-08-20] MEDS ORDERED: LEFL20 PO (14:53)
[2021-08-20] MEDS ORDERED: CELE100 PO (15:02)
== END 2021-08-20 15:15 | disposition home or self-care (01) ==
LOC: ER 13:47
PROVIDERS: Emergency Medicine
DX: R07.9 Chest pain, unspecified (principal); I11.0 Hypertensive heart disease with heart failure; I50.9 Heart failure, unspecified; E78.5 Hyperlipidemia, unspecified; Z88.2 Allergy status to sulfonamides; Z79.82 Long term (current) use of aspirin; Z79.899 Other long term (current) drug therapy
CPT/HCPCS: 36415; 71046; 80053; 84484; 85025; 93005; 93010; 99285-25

== ENCOUNTER 2022-10-15 10:53 | Day surgery (SDC) | payer MEDICARE, BC ==
[~2022-10-15] VITALS: Ht 160 cm; Wt 68.5 kg
[~2022-10-15 10:53] MED LIST changes: +CELE100 PO
[2022-10-15] MEDS ORDERED: EZET10 PO (11:25)
[2022-10-15] MEDS ORDERED: HYDR1TAB94 PO (11:26)
--- NOTE | 2022-10-15 13:22 | NUR ---
10/15/22 1322 BLANE MCGUIRE 0.15MG OF EPI ADDED TO 30MLS OF ROPIVACAINE 0.5% TO CREATE A LOCAL SOLUTION OF ROPIVACAINE 0.5% WITH EPI 1:200,000. 10MLS OF LOCAL INJECTED BEFORE STERILE PREP. 20MLS POURED ONTO STERILE FIELD FOR USE DURING CASE.
--- NOTE | 2022-10-15 16:38 | NUR ---
10/15/22 1638 Jayden Manning PT'S SPO2 READING WOULD PERIODICALLY DROP TO 80'S. READINGS WOULD REUTRN TO HIGH 90'S WHEN PROBE WAS ADJUSTED, WARMED, AND HELD IN PLACE ON EAR OR FINGER. PT DENIED SHORTNESS OF BREATH AND COLOR APPEARED NORMAL THROUGHT HER STAY IN STEP DOWN.
== END 2022-10-15 14:55 | disposition home or self-care (01) ==
LOC: ORSCSDS 10:53
PROVIDERS: Podiatrist Foot & Ankle Surgery
PROC: 0YP90YZ Removal of Other Device from Right Lower Extremity, Open Approach (ICD-10-PCS; principal; 2022-10-15 12:30)
DX: T84.84XA Pain due to internal orthopedic prosthetic devices, implants and grafts, initial encounter (principal); L03.119 Cellulitis of unspecified part of limb; R60.0 Localized edema; M79.673 Pain in unspecified foot; I10 Essential (primary) hypertension; I25.2 Old myocardial infarction; Z79.82 Long term (current) use of aspirin; Z79.899 Other long term (current) drug therapy
CPT/HCPCS: J0171; J0690; J1100; J2250; J2405; J2704; J2795; J3010; J7120

== ENCOUNTER 2023-01-19 09:36 | Day surgery (SDC) | payer MEDICARE, BC ==
[~2023-01-19] VITALS: Ht 160 cm; Wt 70.3 kg
[~2023-01-19 09:36] MED LIST changes: +EZET10 PO; +HYDR1TAB94 PO
[2023-01-19] MEDS ORDERED: LEFL20 PO ×2 (10:01→10:02)
[2023-01-19] MEDS ORDERED: PRAV20 PO (10:03)
[2023-01-19] MEDS ORDERED: GABA300 PO (10:04)
[2023-01-19] MEDS ORDERED: ENTRESTO 24 MG1 EACH PO (10:05)
[2023-01-19] MEDS ORDERED: CELE200 PO (10:06)
[2023-01-19] MEDS ORDERED: SPIRONOLACTONE25 MG PO (10:06)
--- NOTE | 2023-01-19 12:20 | NUR ---
PT BACK TO RECOVERY ROOM VIA BED AFTER PROCEDURE. AWAKE AND ALERT, DENIES PAIN OR DISCOMFORT. TEGADERM CHG AND AIMEE PATCH ON RIGHT GROIN SITE. NO BLEEDING OR SWELLING NOTED AT SITE.
--- NOTE | 2023-01-19 14:00 | NUR ---
HOB elevated 30 degrees. R groin site C/D/I, soft/tender, no evidence of hematoma. Patient tolerating PO intake well. at bedside, conversing appropriately. VSS on room air.
--- NOTE | 2023-01-19 16:25 | NUR ---
HOB elevated 45 degress. R groin C/D/I soft/tender, no evidence of hematoma. VSS on room air.
--- NOTE | 2023-01-19 16:40 | NUR ---
Patient ambulating and voiding to bathroom without difficulty. R groin site C/D/I, soft/tender, no evidence of hematoma. VSS on room air.
--- NOTE | 2023-01-19 16:45 | NUR ---
Patient discharged home at this time via wheelchair. Dsicharge instructions reviewed with patient and at bedside. PIV removed without difficulty, catheter intact. All patient belongings returned to patient. VSS on room air
== END 2023-01-19 23:02 | disposition home or self-care (01) ==
LOC: MHTC 09:36
DX: I35.0 Nonrheumatic aortic (valve) stenosis (principal); I25.10 Atherosclerotic heart disease of native coronary artery without angina pectoris; I42.8 Other cardiomyopathies; I10 Essential (primary) hypertension; E78.5 Hyperlipidemia, unspecified; E66.3 Overweight; M06.9 Rheumatoid arthritis, unspecified; Z88.2 Allergy status to sulfonamides
CPT/HCPCS: 76937; 93454; 99152; 99153; C1760; C1769; C1894; J1644; J2250; J3010; J7030; J7050; Q9967

== ENCOUNTER 2024-08-31 17:44 | Emergency (ER) | payer MEDICARE, BC ==
[~2024-08-31] VITALS: Ht 160 cm; Wt 63.5 kg
[~2024-08-31 17:44] MED LIST changes: +GABA300 PO; +PRAV20 PO
[2024-08-31 19:06] LABS: BASOPHILS ABSOLUTE AUTO 0.06 K/mm3 (0.00-0.23); BASOPHILS PERCENT AUTO 1 % (0-2); EOSINOPHILS ABSOLUTE AUTO 0.17 K/mm3 (0.00-0.68); EOSINOPHILS PERCENT AUTO 1 % (0-6); Hematocrit 29.8 % (33.0-51.0); Hemoglobin 9.1 g/dL (11.5-16.0); IMMATURE GRAN ABSOLUTE AUTO 0.07 K/mm3 (0.00-0.10); IMMATURE GRAN PERCENT AUTO 1 % (0-1); LYMPHOCYTES ABSOLUTE AUTO 2.62 K/mm3 (0.84-5.20); LYMPHOCYTES PERCENT AUTO 21 % (21-46); MONOCYTES ABSOLUTE AUTO 1.36 K/mm3 (0.16-1.47); MONOCYTES PERCENT AUTO 11 % (4-13); Mean Corpuscular HGB 26.3 pg (26.0-34.0); Mean Corpuscular HGB Conc 30.5 g/dL (31.5-36.5); Mean Corpuscular Volume 86 fL (80-100); NEUTROPHILS ABSOLUTE AUTO 8.32 K/mm3 (1.96-9.15); NEUTROPHILS PERCENT AUTO 66 % (41-73); Platelet Count 428 K/mm3 (150-400); RDW Coefficient Variation 16.6 % (11.7-14.2); RDW Standard Deviation 52.4 fL (35.1-46.3); Red Blood Cell Count 3.46 M/mm3 (3.80-5.20)
[2024-08-31 19:35] LABS: Albumin, Blood 2.1 g/dL (3.4-5.0); Albumin/Globulin Ratio 0.6 (0.8-1.8); Bilirubin, Total 0.5 mg/dL (0.1-1.0); Bun/Creatinine Ratio 12.5 (12.0-20.0); Calcium, Blood 8.7 mg/dL (8.5-10.1); Creatinine, Blood 0.8 mg/dL (0.40-1.00); Globulin, Blood 3.6 g/dL (2.2-4.0); Potassium, Blood 3.8 mmol/L (3.5-5.5); Total Protein, Blood 5.7 g/dL (6.4-8.2)
[2024-08-31] MEDS ORDERED: ONDA4ODT MM (21:22)
[2024-08-31] MEDS ORDERED: OxyCODONE HCL 5 MG TAB PO ONE (21:25)
[2024-08-31] MEDS ORDERED: RX Prepack 2 Tabs Ondansetron ODT 4MG UD ONE (21:25)
== END 2024-08-31 21:46 | disposition home or self-care (01) ==
LOC: ER 17:44
PROVIDERS: Physician Assistant
DX: R19.7 Diarrhea, unspecified (principal); E86.0 Dehydration; N30.90 Cystitis, unspecified without hematuria; Z88.2 Allergy status to sulfonamides; Z79.899 Other long term (current) drug therapy; Z79.82 Long term (current) use of aspirin; I11.0 Hypertensive heart disease with heart failure; E78.5 Hyperlipidemia, unspecified; I50.9 Heart failure, unspecified
CPT/HCPCS: 80053; 85025; 99283; A9270

== ENCOUNTER 2025-02-13 11:22 | Emergency (ER) | payer MEDICARE, BC ==
[~2025-02-13] VITALS: Ht 157.5 cm; Wt 59.0 kg
[~2025-02-13 11:22] MED LIST changes: +ONDA4ODT MM
[2025-02-13 12:23] LABS: BASOPHILS ABSOLUTE AUTO 0.06 K/mm3 (0.00-0.23); BASOPHILS PERCENT AUTO 1 % (0-2); EOSINOPHILS ABSOLUTE AUTO 0.34 K/mm3 (0.00-0.68); EOSINOPHILS PERCENT AUTO 3 % (0-6); Hematocrit 36.7 % (33.0-51.0); Hemoglobin 11.3 g/dL (11.5-16.0); IMMATURE GRAN ABSOLUTE AUTO 0.05 K/mm3 (0.00-0.10); IMMATURE GRAN PERCENT AUTO 1 % (0-1); LYMPHOCYTES ABSOLUTE AUTO 1.99 K/mm3 (0.84-5.20); LYMPHOCYTES PERCENT AUTO 18 % (21-46); MONOCYTES ABSOLUTE AUTO 1.19 K/mm3 (0.16-1.47); MONOCYTES PERCENT AUTO 11 % (4-13); Mean Corpuscular HGB 26.3 pg (26.0-34.0); Mean Corpuscular HGB Conc 30.8 g/dL (31.5-36.5); Mean Corpuscular Volume 85 fL (80-100); Mean Platelet Volume 11.1 fL (9.1-12.4); NEUTROPHILS PERCENT AUTO 67 % (41-73); Platelet Count 399 K/mm3 (150-400); RDW Coefficient Variation 16.5 % (11.7-14.2); RDW Standard Deviation 51.5 fL (35.1-46.3); White Blood Cell Count 10.93 K/mm3 (4.00-11.30)
[2025-02-13 12:40] LABS: Albumin, Blood 3.1 g/dL (3.4-5.0); Albumin/Globulin Ratio 0.9 (0.8-1.8); Bilirubin, Total 0.4 mg/dL (0.1-1.0); Bun/Creatinine Ratio 21.4 (12.0-20.0); Calcium, Blood 9.4 mg/dL (8.5-10.1); Creatinine, Blood 1.03 mg/dL (0.40-1.00); Globulin, Blood 3.5 g/dL (2.2-4.0); Total Protein, Blood 6.6 g/dL (6.4-8.2)
[2025-02-13] MEDS ORDERED: NORTRIPTYLINE H1012 PO (14:39)
[2025-02-13 14:42] VITALS: BP 128/84
== END 2025-02-13 13:50 | disposition home or self-care (01) ==
LOC: ER 11:22
PROVIDERS: Emergency Medicine
DX: R53.1 Weakness (principal); M54.50 Low back pain, unspecified; G89.29 Other chronic pain; I11.0 Hypertensive heart disease with heart failure; I50.20 Unspecified systolic (congestive) heart failure; E78.5 Hyperlipidemia, unspecified; M06.9 Rheumatoid arthritis, unspecified; Z88.2 Allergy status to sulfonamides; Z79.82 Long term (current) use of aspirin; Z79.1 Long term (current) use of non-steroidal anti-inflammatories (NSAID); Z79.899 Other long term (current) drug therapy
CPT/HCPCS: 36415; 80053; 85025; 93005; 93010; 99285-25